=== PATIENT | male | born 1965 | race Caucasian/White ===

== ENCOUNTER 2025-02-06 17:13 | Observation (INO) | payer MEDICAID, SELFPAY ==
[2025-02-06] VITALS (11 sets, daily range): BP systolic 115–148; BP diastolic 86–94; PULSE 105–120; RESP 19–22; TEMP 36.8–36.9; O2SAT 95–100; BMI 19.5
--- NOTE | 2025-02-06 17:31 | EKG_ITS ---
[facility] Test Date: 2025-02-06 Pat Name: GABRIEL AUSTIN Department: Room: - Gender: Male Home Care Consultant: : 1965 Requested By: Mike Lynch Order Number: [id number] Reading MD: Mike Lynch Measurements Intervals [place] Rate: 113 P: 81 NV: 138 QRS: 121 QRSD: 96 T: 61 QT: 330 QTc: 454 Interpretive Statements SINUS TACHYCARDIA RIGHT ATRIAL ENLARGEMENT [0.3mV P-WAVE] POSSIBLE LEFT ATRIAL ENLARGEMENT [-0.1mV P-WAVE IN V1/V2] LEFT POSTERIOR FASCICULAR BLOCK [QRS AXIS > 109, INFERIOR Q] Compared to ECG 01/08/2024 09:33:51 Left posterior fascicular block now present Short NV interval no longer present /store/S0/[id number].pdf
--- NOTE | 2025-02-06 17:31 | XR_ITS ---
Examination: AP chest single view Technique 1 AP portable sitting chest single view Exam date and time: February 06, 2025 1628 hours INDICATIONS: COPD difficulty breathing today. FINDINGS: Normal heart size Moderate hyperexpansion Scarring left base No lobar pneumonia or pulmonary edema Moderate osteopenia IMPRESSION: COPD No pneumonia or pulmonary edema
--- NOTE | 2025-02-06 17:31 | PD.EDSOB ---
ED SOB =RME/HPI General Chief Complaint: Shortness of Breath/Dyspnea Stated Complaint: SHORTNESS OF BREATH Time Seen by Provider: 02/06/25 17:31 Arrival date/time: 02/06/25 17:13 RME / HPI RME / HPI Narrative: DR. GARCIA MAIN ED EVALUATION: 59 year old male with past medical history significant for hypertension and COPD presents to the Emergency Department [facility] with complaint of shortness of breath onset today. Symptoms are moderate. No other symptoms reported at this time. Related Data Home Medications ?Medication ?Instructions ?Recorded ?Confirmed losartan 25 mg tablet 25 mg PO QDAY 01/08/24 01/08/24 multivitamin 1 tab PO QDAY 01/08/24 01/08/24 Previous Rx's ?Medication ?Instructions ?Recorded albuterol sulfate 90 mcg/actuation 1 inh inhalation Q4H #1 ea 12/15/23 breath activated powder inhaler,sensor albuterol sulfate 90 mcg/actuation 1 inh inhalation QID PRN shortness 01/08/24 aerosol inhaler of breath or wheezing #8.5 grams fluticasone propionate 44 1 puff inhalation BID #10.6 grams 01/09/24 mcg/actuation HFA aerosol inhaler prednisone 5 mg tablet See Taper PO QDAY #19 tabs 01/09/24 umeclidinium 62.5 mcg-vilanterol 1 inh inhalation QDAY #60 ea 01/09/24 25 mcg/actuation powdr for inhalation (Anoro Ellipta) Allergies Allergy/AdvReac Type Severity Reaction Status Date / Time No Known Allergies Allergy Unverified 01/08/24 08:38 Review of Systems Review of Systems Systems Reviewed: All systems reviewed, normal except as documented Narrative Review of Systems: Constitutional: DENIES: fevers; Eyes: DENIES: loss of vision; Head/Ear/Nose: DENIES: loss of hearing. Throat: DENIES: dysphagia. Cardiovascular: DENIES: chest pain, dyspnea, or syncope. Respiratory: POSITIVES: shortness of breath Gastrointestinal: DENIES: rectal bleeding or melena. Genitourinary: DENIES: dysuria (painful or difficult urination); Musculoskeletal: DENIES: arthralgia (pain in a joint); Skin: DENIES: rash; Neurological: DENIES: loss of function or movement; Psychiatric: DENIES: recent major life stressor, emotional problem, illicit drug use or abuse; Endocrinology: DENIES: weight change,; Hematologic/Lymphatic: DENIES: abnormal bruising. Allergic/Immunologic: DENIES: urticaria (hives). Past Medical History Past Medical History CARDIAC: Positive Hypertension RESPIRATORY: Positive Chronic Obstructive Pulmonary Disease (COPD) and Asthma; Negative Bronchitis, Emphysema, Pneumonia, Pulmonary Fibrosis, Cystic Fibrosis, Tuberculosis, Pulmonary Embolism, Pulmonary Edema or Sleep Apnea GASTROINTESTINAL: Negative Gastrointestinal Disorders, Hepatitis, Cirrhosis, Pancreatitis, Celiac Disease, Gall Bladder Disease, Gastrointestinal Bleed, Esophageal Varices, Sands's Esophagus, Colitis, Ulcerative Colitis, Diverticulitis, Diverticulosis, Ulcer, Colorectal Cancer, Irritable Bowel, Crohn's Disease, Obstructive Bowel, Hiatal Hernia, Hemorrhoids, Gastroesophageal Reflux Disease or Obesity GENITOURINARY: Negative Genitourinary Disorders, Renal Disease, Kidney Stones, Polycystic Kidney Disease, Neurogenic Bladder, Inguinal Hernia, Dialysis, Prostate Cancer or Benign Prostatic Hyperplasia REPRODUCTIVE: Negative Breast Cancer, Fibroids, Genital Herpes, Gonorrhea, Syphilis or Testicular Cancer MUSCULOSKELETAL: Positive Arthritis; Negative Musculoskeletal Disorders, Muscular Dystrophy, Myasthenia Gravis, Marfan's Syndrome, Bone Cancer, Rheumatoid Arthritis, Osteoporosis, Degenerative Disk Disease, Gout, Scoliosis, Carpal Tunnel Syndrome, Fibromyalgia, Fractures, Degenerative Joint Disease, Osteomyelitis or Poliovirus ENT: Negative Cataracts, Glaucoma, Blind, Retinal Detachment, Macular Degeneration, Ear Infection, Deafness or Eye Prosthesis ENDOCRINE: Negative Endocrine Disorders, Diabetes Mellitus Type 1, Diabetes Mellitus Type 2, Hypoglycemia, Webb's Syndrome, Ballard's Disease, Hyperthyroidism, Hypothyroidism, Parathyroid Disease, Pituitary Disease, Systemic Lupus Erythematosus, Syndrome of Inappropriate Antidiuretic Hormone (SIADH), Adrenal Disease or Graves' Disease HEMATOLOGIC: Negative Blood Disorders, Anemia, Leukemia, Hemophilia, Thalassemia, Sickle Cell Disease or Clotting Problems PSYCHO/SOCIAL: Negative Psychiatric Problems, Schizophrenia, Recreational Drug Use, Bipolar Disorder, Depression, Anxiety, Behavior Problems, Self-Mutilation, Attention Deficit Disorder, Attention Deficit Hyperactivity Disorder, Depression, Post Traumatic Stress Disorder or Eating Disorder OTHER HISTORY: Negative Hospitalization, Autoimmune Disease, Down Syndrome, Autism, Developmental Delay, Shingles, Falls, Blood Transfusions, Blood Transfusion Reaction, Anesthesia Reactions, Organ Transplant, Chemotherapy, Radiation Therapy, Hyperbaric Therapy, MRSA, VRSA, Vancomycin-Resistant Enterococci, Human Immunodeficiency Virus (HIV), Chicken Pox, Measles, Mumps, Rubella (Serbian Measles), Pertussis, Clostridium Difficile, Cancer, Breast Cancer, Cervical Cancer, Colorectal Cancer, Lung Cancer, Ovarian Cancer, Prostate Cancer or Testicular Cancer Family History FAMILY HISTORY: Negative Family Psychiatric Problems, Family Respiratory Disorders, Family Cardiac Disorders, Family Gastrointestinal Problems, Family Cancer, Family Surgery or Family Anesthesia Reaction Surgical History SURGICAL: Negative Cardiac Surgery, Open Heart Surgery, Coronary Artery Bypass Graft, Valve Replacement, Vascular Surgery, Coronary Stent, Cardiac Catheterization, Pacemaker, Angiogram, Auto Implanted Cardiovert Defib, Carotid Endarterectomy, Endocrine Surgery, Thyroidectomy, Ear Surgery, Tympanostomy Tube, Eye Surgery, Nose Surgery, Oral Surgery, Tonsillectomy, Adenoidectomy, Cochlear Implant, Corneal Transplant, Throat Surgery, Abdominal Surgery, Tracheostomy, Gastric Bypass Surgery, Gastrostomy, Bowel Surgery, Nephrectomy, Transurethral Resection, Joint Replacement, Amputation, Open Reduction Internal Fixation, Arthroscopy, Neurologic Surgery, Brain Shunt, Mastectomy, Lumpectomy, Hysterectomy, Tubal Ligation, Section, Vasectomy or Organ Transplant Social History SMOKING STATUS: Former smoker SECOND HAND EXPOSURE: No (states quit 10 years ago) SUBSTANCE USE: does not use ALCOHOL: Never ED Exam Narrative Physical exam: Physical Exam: General: The vital signs were reviewed. Patient arrives in the ambulance bay and put into room 3 as he is labored breathing grossly short of breath speaking have to full sentences barely full sentences. The patient is non-toxic, with a patent airway, and has no apparent circulatory problems. Head & Scalp: Normocephalic, atraumatic. Face: Appears normal and is without lesions, deformity. Ears: Left external pinna appears normal. Right external pinna appears normal. Eyes: The sclera is anicteric. No obvious photophobia. The Left and Right Orbit/Lid/Conjunctiva appears normal without swelling, discoloration or injection. Nose: The nose is without deformity, discharge or tenderness; Throat: Appears normal. The mucous membranes are pink and moist without exudates, redness or mass seen. The tongue appears normal. Neck: The neck is supple and no apparent mass or adenopathy. Chest: The chest wall is normal in size and symmetry and has no chest wall tenderness or crepitus. The patient displays increased ventilatory effort with wheezes in all lung loya and prolonged expiratory phase and poor air movement overall. Cardiovascular: Tacky but regular regular rate and rhythm; No murmurs, rubs, or gallops; Gastrointestinal: The abdomen appears normal. No obvious hernias or mass. The abdomen is soft and benign, non-distended, with no pain, no guarding and no rebound tenderness. Bowel sounds are present and normal sounding. No CVA tenderness. Genitourinary: Back/Spine: Normal inspection Extremities/Musculoskeletal/lymphatic: The bilateral upper and lower extremities are warm. There is no evidence of arterial insufficiency. There is no evidence of venous insufficiency/edema. The patient spontaneously moves bilateral upper and lower extremities with no pain and no limitation of movement. There is no apparent, injury or trauma. Skin: The skin is warm, dry and intact. No rashes. No petechia. No purpura. No abnormal bruising. The color is appropriate with no cyanosis. Mental status/Psychiatric: Mental status is appropriate for age. The patient has no apparent delusions, visual hallucinations, no apparent audible hallucinations. The patient has no apparent suicidal thoughts/ideation and no apparent homicidal thoughts/ideation. Neurological: The patient is awake, alert, interactive, cordial, cooperative and is oriented to name and situation. The patient follows commands and answers historical question with no impairment. There is no visual disturbance apparent. The pupils are equal and reactive bilaterally with normal eye movements and no diplopia The bilateral upper and lower extremities have normal strength, normal range of motion and normal functioning. The gait, station and balance not tested due to acuity. Course Quality Measures none Orders Category Date Time Status Child Adolescent Care STAT Care 02/06/25 17:31 Active Continuous Pulse Oximetry STAT Care 02/06/25 17:31 Completed EKG (ED ONLY) *Do not use* NOW Care 02/06/25 17:31 Completed Insert IV NOW Care 02/06/25 17:31 Active Miscellaneous Nursing Order NOW Care 02/06/25 17:31 Active NPO STAT Care 02/06/25 17:31 Active EKG (ED Only) Stat Exams 02/06/25 17:31 Draft XR chest 1V portable Stat Exams 02/06/25 17:31 Taken B-Type Natriuretic Peptide Stat Lab 02/06/25 17:58 Received Blood Culture (Lab) Stat Lab 02/06/25 17:58 Received CBC Stat Lab 02/06/25 17:58 Received Comprehensive Metabolic Panel Stat Lab 02/06/25 17:58 Received Lactate (Lactic Acid) Stat Lab 02/06/25 17:58 Completed Magnesium Stat Lab 02/06/25 17:58 Received Procalcitonin Stat Lab 02/06/25 17:58 Received Troponin I Stat Lab 02/06/25 17:58 Received Urinalysis Stat Lab 02/06/25 17:31 Ordered Venous Blood Gas Stat Lab 02/06/25 17:58 Completed ALBUTEROL RT 0.5ml [Proventil Rt 0.5ml] Med 02/06/25 17:31 Discontinued 10 mg INH X1 ONE Ipratropium [place] Rt Arianna [Atrovent Rt Arianna] Med 02/06/25 17:31 Discontinued 0.5 mg INH X1 ONE MethylPREDNISolone.* [SoluMEDROL Inj] Med 02/06/25 17:31 Discontinued 125 mg IVP X1 ONE Oxygen Delivery NOW RT 02/06/25 17:31 Active Vital Signs Vital signs: Vital Signs Temperature 98.3 F 02/06/25 17:40 Pulse Rate 117 H 02/06/25 17:40 Respiratory Rate 21 H 02/06/25 17:40 Pulse Oximetry (%) 97 02/06/25 17:40 Oxygen Delivery Method Nasal Cannula 02/06/25 17:40 Oxygen Flow Rate 3 02/06/25 17:40 Procedures -ED Smoking Cessation Time Spent Discussing Smoking Cessation w/Patient (min): 3 Patient Acknowledges Need for Cessation: Yes Additional Comments: The patient was counseled as to the multiple risks to their health from continued use of tobacco products. It was explained that continuing to smoke may lead to multiple short and fci negative health consequences, including but not limited to mouth/esophageal/lung cancer, COPD, and heart disease. The patient states they understand these risks, and also understand the options and resources available to them to help them stop smoking. Nicotine replacement therapy, local hotlines, and local resources were discussed as viable options for helping them stop their tobacco use. The total time spent counseling the patient regarding tobacco cessation was 3 minutes. Shortness of Breath / Dyspnea MDM Narrative MDM Narrative:: Patient arrives at 1730 hrs. with respiratory distress obvious wheezing history of COPD and will start continuous nebs initiated workup. This will be a critical care patient due to the continuous nebs required. At 1800 my partners come on and assumes the care of this patient respiratory distress is getting his continuous nebs now medical workup is just been initiated. The only laboratory study that came back his venous blood gases a pH is 7.41 and a pCO2 of 46. Dr. Morrison is aware and assumes care. Sharri Burgos am scribing for and in the presence of Dr. Garcia. Patient data External records reviewed:: [facility] previous records (Reviewed last admission discharge dated 01/09/24, patient admitted for the following: Acute respiratory distress) and EMS form Clinical information provided by:: patient Social determinants that could affect healthcare access:: other (specify) (smoking) Patient has the following chronic illnesses:: hypertension and COPD How is presenting disease/condition affected by chronic disease/condition?: exacerbated by Evaluation data The following diagnostics were reviewed and interpreted by me:: lab results, radiology exam(s) and EKG tracing(s) Lab and/or radiology exams considered but not ordered:: none Interpretation Summary: pending diagnostic tests Medications / Prescriptions Medications or Prescriptions considered but not ordered:: none Medication administrations:: Medication Administration History Discontinued Medications Albuterol (Albuterol Rt 2.5 Mg/0.5 Ml Nebu) 10 mg INH X1 ONE Stop: 02/06/25 17:32 Last Admin: 02/06/25 17:42 Dose: 10 mg Documented By: NE Ipratropium [place] (Ipratropium Rt 0.5 Mg/ 2.5 Ml Nebu) 0.5 mg INH X1 ONE Stop: 02/06/25 17:32 Last Admin: 02/06/25 17:41 Dose: 0.5 mg Documented By: NE Methylprednisolone Sodium Succinate (Methylprednisolone Sod Succ 62.5 Mg/Ml 2ml Vial) 125 mg IVP X1 ONE Stop: 02/06/25 17:32 Last Admin: 02/06/25 17:40 Dose: 125 mg Documented By: RIC see above Consultations Consultation(s) initiated? (list below): No Diagnosis Shortness of Breath Differential Diagnosis: acute exacerbation of chronic obstructive airways disease, community acquired pneumonia, asthma with exacerbation and pulmonary embolism Most likely diagnosis given after review of the tests above:: No official diagnoses at this time, still pending diagnostic tests. Patient signout to the manufacturing supervisor 2nd shift provider. Admission Indicated Admission indicated?: not indicated Explain why admission is indicated or not indicated:: No final disposition plan at this time, still pending diagnostic tests. Patient signout to the manufacturing supervisor 2nd shift provider. Admission Request Was there a request for admission?: No Disposition Plan Disposition Plan: other (specify) (Patient signout to the manufacturing supervisor 2nd shift provider. ) Discharge Plan Prescriptions/Referrals Prescriptions/Med Rec: No Action albuterol sulfate 90 mcg/actuation aero powdr breath act w/sensor 1 inh inhalation Q4H Qty: 1 1RF multivitamin Tablet 1 tab PO QDAY losartan 25 mg Tablet 25 mg PO QDAY albuterol sulfate 90 mcg/actuation HFA aerosol inhaler 1 inh inhalation QID PRN (Reason: shortness of breath or wheezing) Qty: 8.5 2RF prednisone 5 mg tablet See Taper PO QDAY Qty: 19 0RF Taper: Prednisone Taper 20 mg DAILY for 2 Days and 0 Hour 10 mg DAILY for 2 Days and 0 Hour 5 mg DAILY for 7 Days and 0 Hour Anoro Ellipta 62.5-25 mcg/actuation blister with device 1 inh inhalation QDAY Qty: 60 0RF fluticasone propionate 44 mcg/actuation HFA aerosol inhaler 1 puff inhalation BID Qty: 10.6 0RF Rx Instructions: administer with spacer Problem List Clinical Impression: COPD exacerbation, Acute respiratory distress Patient/Caregiver Discharge Instructions Print Language: Micronesian
[2025-02-06] MEDS: MethylPREDNISolone SOD SUCC 62.5 MG/ML 2ML VIAL 125 MG IVP (17:40)
[2025-02-06] MEDS: IPRATROPIUM RT 0.5 MG/ 2.5 ML NEBU INH ×2 (17:41→22:34)
[2025-02-06] MEDS: ALBUTEROL RT 2.5 MG/0.5 ML NEBU 10 MG INH (17:42)
[2025-02-06 18:05] LABS: Lactate (Lactic Acid) 1.3 mMol/L (0.4-2.0)
[2025-02-06 18:06] LABS: Base Excess, Venous 4 (-3-3); O2 Saturation, Venous 73 % (96-97); PCO2, Venous 46 mmHg (36-56); PO2, Venous 38 mmHg (15-58); pH, Venous 7.41 (7.33-7.66)
[2025-02-06 18:10] LABS: Basophils # (Auto) 0.1 Thou/mm3 (0.0-0.2); Basophils % (Auto) 1 % (0-2.5); Eosinophils # (Auto) 0.2 Thou/mm3 (0.0-0.5); Eosinophils % (Auto) 3 % (0-10); Hematocrit 45.2 % (41.0-53.0); Hemoglobin 15.9 g/dL (13.5-16.0); Immature Granulocytes % (Auto) 0 % (0-0); Immature Granulocytes Auto 0.02 Thou/mm3 (0.00-0.00); Lymphocytes # (Auto) 2.5 Thou/mm3 (1.0-4.8); Lymphocytes % (Auto) 34 % (10-50); Mean Corpuscular HGB Conc 35.2 g/dl (31.0-37.0); Mean Corpuscular Hemoglobin 31.8 pg (25.0-35.0); Mean Corpuscular Volume 90 fL (80-100); Monocytes # (Auto) 0.7 Thou/mm3 (0.0-0.8); Monocytes % (Auto) 10 % (0-12); Neutrophils # (Auto) 3.8 Thou/mm3 (1.8-7.7); Neutrophils % (Auto) 52 % (37-80); Nucleated Red Blood Cell % 0 /100 WBC (0); Platelet Count 267 Thou/mm3 (140-440); White Blood Count 7.3 Thou/mm3 (3.8-10.6)
[2025-02-06] MEDS: LORazepam 2 MG/ML VIAL 1 MG IVP (18:19)
[2025-02-06] MEDS: Magnesium Sulfate 2 GM Ivpb 2 GM/50 ML BAG IV (18:20)
[2025-02-06 18:33] LABS: B-Type Natriuretic Peptide < 20 pg/mL (0-100)
[2025-02-06 18:36] LABS: D-Dimer < 250 ng/mL (<600)
[2025-02-06 18:41] LABS: Alanine Aminotransferase 39 U/L (10-49); Albumin, Serum 4.5 gm/dL (3.4-4.8); Albumin/Globulin Ratio 1.9 (1.2-2.2); Alkaline Phosphatase 84 U/L (46-116); Anion Gap 6 (7-16); Aspartate Amino Transferase 28 U/L (0-34); BUN/Creatinine Ratio 15 Ratio (12-20); Bilirubin,Total 0.8 mg/dL (0.3-1.2); Blood Urea Nitrogen 12 mg/dL (9-23); Calcium 9.9 mg/dL (8.3-10.6); Calcium (Corrected) 9.9 mg/dL (8.5-10.1); Carbon Dioxide 29.6 mMol/L (20.0-31.0); Chloride 104 mMol/L (98-107); Creatinine (Component) 0.8 mg/dL (0.6-1.3); Estimated Creatinine Clearance 88.2 mL/min (>60); Globulin 2.4 gm/dL (2.3-3.5); Glucose 132 mg/dL (74-106); Magnesium 1.8 mg/dL (1.6-2.6); Osmolality,Calculated 281 (275-295); Potassium 4.5 mMol/L (3.4-5.1); Sodium 140 mMol/L (136-145); Thyroid Stimulating Hormone 1.79 uIU/mL (0.55-4.78); Total Protein 6.9 gm/dL (5.7-8.2); Troponin I < 0.020 ng/mL (0.0-0.045); eGFR > 60 See Note
--- NOTE | 2025-02-06 19:45 | PD.EDADDENDU ---
Emergency Room Addendum Addendum Narrative: I took over the care from Dr. Lynch at 6 PM on 02/06/2025, see his notes for complete H&P and ED course. He presented with several days of worsening cough, productive cough, purulent sputum, and dyspnea. Exam remarkable for hypoxia and severely decreased air movement with diffuse wheezing. I reviewed all diagnostic test results. My interpretation of the EKG is: Sinus rhythm (113 bpm) with nonspecific ST-T changes. My interpretation of the chest x-ray is no acute findings. Blood tests unremarkable, including negative troponin/D-dimer/BNP. COVID/influenza negative. At this point, diagnoses include acute respiratory failure with hypoxia and an COPD exacerbation. Treatment here included Solu-Medrol 125 mg IV, neb treatments, MgSO4 2 gram IV, Rocephin 1 g IV, and oral Zithromax 500 mg. And Ativan 1 mg IV to help with the side effects. Some improvement noted. I discussed the case with our hospitalist. About the presentation and exam and diagnostics and treatments here. And need of further care in the hospital. Will accept the patient. Jean Morrison MD
[2025-02-06] MEDS: AZITHROMYCIN 250 MG TABLET 500 MG PO (20:15)
[2025-02-06] MEDS: cefTRIAXone 1,000 MG in SODIUM CHLORIDE 0.9% (Popper) 50 ML 100 MG IV (20:16)
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
[2025-02-06] MEDS: ATORVASTATIN CALCIUM 10 MG TABLET 20 MG PO (22:06)
[2025-02-06] MEDS: SODIUM CHLORIDE RT 10% 15 ML NEBU 5 ML INH (22:25)
[2025-02-06] MEDS: LEVALBUTEROL RT 0.63 MG/3 ML NEBU 1.25 MG INH (22:35)
[2025-02-07] VITALS: BP 115/85; PULSE 105; RESP 17; TEMP 36.4; O2SAT 98
[2025-02-07 02:20] LABS: Collection Type, Urine Clean Catch
[2025-02-07 03:11] LABS: Bilirubin,Urine Negative (Negative); Blood,Urine Negative (Negative); Clarity,Urine Clear (Clear/Hazy); Color,Urine Lt-Yellow (Lt Yel-Yel); Glucose, Urine 3+ (Negative); Ketones,Urine 1+ (Negative); Leukocyte Esterase,Urine Negative (Negative); Nitrite,Urine Negative (Negative); PH,Urine 6.5 (5.0-7.0); Protein,Urine Negative (Neg - Trace); RBC,Urine 1 /hpf (0-3); Specific Gravity,Urine 1.022 (1.001-1.035); Squamous Epithelial Cell,Urine < 1 /hpf (0-5); Urobilinogen,Urine Negative mg/dL (0.0-1.0); WBC,Urine 1 /hpf (0-5)
[2025-02-07 04:00] VITALS: BP 133/84; PULSE 100; PULSE 92; RESP 26; TEMP 36.5; O2SAT 93
[2025-02-07 06:03] LABS: Basophils % (Auto) 0 % (0-2.5); Eosinophils % (Auto) 0 % (0-10); Hematocrit 42.3 % (41.0-53.0); Hemoglobin 14.9 g/dL (13.5-16.0); Immature Granulocytes % (Auto) 0 % (0-0); Immature Granulocytes Auto 0.01 Thou/mm3 (0.00-0.00); Lymphocytes # (Auto) 0.6 Thou/mm3 (1.0-4.8); Lymphocytes % (Auto) 13 % (10-50); Mean Corpuscular HGB Conc 35.2 g/dl (31.0-37.0); Mean Corpuscular Volume 91 fL (80-100); Monocytes # (Auto) 0.2 Thou/mm3 (0.0-0.8); Monocytes % (Auto) 5 % (0-12); Neutrophils % (Auto) 82 % (37-80); Nucleated Red Blood Cell % 0 /100 WBC (0); Platelet Count 267 Thou/mm3 (140-440); RDW Standard Deviation 39.4 fL (35.1-43.9); Red Blood Count 4.66 Miln/mm3 (4.50-5.90); White Blood Count 4.8 Thou/mm3 (3.8-10.6)
[2025-02-07 06:09] LABS: Glucose Estimated Average 108 mg/dL (80-131); Hemoglobin A1C 5.4 % Hgb (4.8-6.0)
[2025-02-07 06:12] LABS: Partial Thromboplastin Time 24.7 Seconds (22.0-36.0); Prothrombin Time 11.3 Seconds (9.0-12.2)
[2025-02-07] MEDS: LEVALBUTEROL RT 0.63 MG/3 ML NEBU 1.25 MG INH (06:17)
[2025-02-07] MEDS: IPRATROPIUM RT 0.5 MG/ 2.5 ML NEBU INH (06:17)
[2025-02-07 06:18] VITALS: PULSE 102; PULSE 95; RESP 18; RESP 20; O2SAT 97; O2SAT 99
[2025-02-07 06:24] LABS: Alanine Aminotransferase 31 U/L (10-49); Albumin/Globulin Ratio 1.8 (1.2-2.2); Alkaline Phosphatase 78 U/L (46-116); Anion Gap 9 (7-16); Aspartate Amino Transferase 22 U/L (0-34); BUN/Creatinine Ratio 18 Ratio (12-20); Bilirubin,Total 0.5 mg/dL (0.3-1.2); Blood Urea Nitrogen 14 mg/dL (9-23); Calcium 9.2 mg/dL (8.3-10.6); Calcium (Corrected) 9.2 mg/dL (8.5-10.1); Carbon Dioxide 27.8 mMol/L (20.0-31.0); Cardiac Risk Estimate 2.1 RATIO (4.0-6.7); Chloride 103 mMol/L (98-107); Cholesterol 149 mg/dL (132-200); Creatinine (Component) 0.8 mg/dL (0.6-1.3); Estimated Creatinine Clearance 88.4 mL/min (>60); Globulin 2.2 gm/dL (2.3-3.5); Glucose 163 mg/dL (74-106); HDL Cholesterol 70 mg/dL (40-60); LDL Cholesterol,Calculated 72 mg/dL (0-130); Magnesium 1.9 mg/dL (1.6-2.6); Osmolality,Calculated 283 (275-295); Potassium 4.2 mMol/L (3.4-5.1); Sodium 140 mMol/L (136-145); Total Protein 6.2 gm/dL (5.7-8.2); Triglycerides 37 mg/dL (30-150); eGFR > 60 See Note
[2025-02-07 08:00] VITALS: BP 115/78; PULSE 97; RESP 15; TEMP 36.6; O2SAT 100
[2025-02-07 08:02] VITALS: BP 115/79; PULSE 97
[2025-02-07] MEDS: LOSARTAN POTASSIUM 25 MG TABLET 50 MG PO (08:02)
--- NOTE | 2025-02-07 11:01 | PC.SS ---
Patient Cheng Aguayo is a 59 Year old male admitted for Short of Breath. SS met with patient at bedside to discuss discharge plan and review Demographic information. Patient reports he lives at home with roommates. Patient reports his surrogate decision maker is his life partner, Lara Courtney [phone]. or [phone]. Patient reports he does not utilize any DME to assist with ambulation, howerver does utilize home 02 as needed 1L and is established with [employer]. Patient's PCP is Dk Oneal. At time of discharge patient wishes to return back home. family will provide transportation. Next of kin: Life partner Lara Courtney Discharge plan HOme
--- NOTE | 2025-02-07 11:39 | ESDS_ITS ---
Planned Discharge Date 02/07/25 DS: Providers Provider Date of admission: 02/06/25 21:32 Primary care physician: Dk Oneal MD Admitting Provider: Saray Carlos MD Attending Provider on Admission: Jose Lyle DO Attending Provider on DC: Toby Davies MD Discharging Provider: Toby Davies MD DS: Diagnosis Problem List Completed Was Problem List Reviewed/Reconciled?: Yes Hospital Course Hospital Course Hospital course: Mr. Aguayo is a 58-year-old male with past medical history of COPD, hypertension who presented to [facility] ED on complaining of shortness of breath and cough for 1 day. Patient has admitted to observation overnight for further management of COPD exacerbation. Pt is not a current smokers and last cigarette was 18 years ago. Patient received breathing treatments and supplemental oxygen. VBG were within normal limits, and the remainder of the labs including troponin, BNP, Pro-Choco was all within normal limits chest x-ray showed no pneumonia or pulmonary edema. Patient is back to baseline currently saturating 99% on 1 L oxygen which is what he uses at home. Patient has a appointment with district manager primary care sales and painting technician later this year. Patient is hemodynamically and clinically stable to be discharged home to self- care. Patient is strongly advised to continue using his home Trelegy daily and albuterol as needed as well as supplemental oxygen daily. If symptoms recur or worsen to promptly return to the ED. Discharge Recommendations -Follow up with primary care within 2 weeks -Take medications as prescribed -Follow up with district manager primary care sales and painting technician at your scheduled appointment -If your symptoms reoccur or worsen, promptly return to the ED Hospitalization Diagnosis #Acute on chronic hypoxic respiratory failure #COPD exacerbation- resolved #Hypertension #Hyperlipidemia #Sinus tachycardia Assessment and plan discussed with my attending physician Dr. Valdo Davies (PGY-1)- Internal medicine resident Status at Discharge Functional status at discharge: independent ambulation Time Spent with Patient Time attestation: Total time spent providing and/or coordinating discharge services: Time spent: Greater than 30 minutes Exam Vital Signs Temp Pulse Resp BP Pulse Ox O2 Del Method O2 Flow Rate 97.8 F 97 15 115/79 100 Nasal Cannula 2 02/07/25 08:00 02/07/25 08:02 02/07/25 08:00 02/07/25 08:02 02/07/25 08:00 02/07/25 08:00 02/07/25 08:00 Narrative Exam GENERAL: A&Ox3 . Awake, Not in acute distress NEURO: no focal neurological deficits HEENT: Atraumatic, Normocephalic. mucous membranes moist. Eyes open, symmetrical, & clear HEART: Normal Heart Sounds LUNGS: Clear to auscultation with no wheezing or crackles. ABDOMEN: soft, non-distended, non-tender, bowel sounds heard, no guarding or rebound tenderness SKIN: No Rash or ecchymoses EXTREMITIES: No edema, tenderness, able to move all 4 extremities, pedal pulses palpated Discharge Plan Plan Patient Disposition: HOME (Self Care) Care Plan Goals: -Follow up with primary care within 2 weeks -Take medications as prescribed -Follow up with district manager primary care sales and painting technician at your scheduled appointment -If your symptoms reoccur or worsen, promptly return to the ED Prescriptions/Referrals Prescriptions/Med Rec: Continued losartan 50 mg tablet 50 mg PO QDAY Patient Comments: TAKE 1 TABLET BY MOUTH EVERY DAY atorvastatin 20 mg tablet 20 mg PO QDAY Patient Comments: TAKE 1 TABLET BY MOUTH EVERY DAY FOR 90 DAYS albuterol sulfate 90 mcg/actuation HFA aerosol inhaler 1 inh inhalation QID PRN (Reason: shortness of breath or wheezing) Qty: 8.5 2RF Anoro Ellipta 62.5-25 mcg/actuation blister with device 1 inh inhalation QDAY Qty: 60 0RF Referrals: Dk Oneal MD [Primary Care Provider] - Patient/Caregiver Discharge Instructions Education Materials: COPD: Wheezing and Chest Tightness, Discharge Instructions: COPD, COPD: Lung Surgery Options, Chronic Lung Disease Avoiding ... Print Language: Maori Stand Alone Forms: Joy Award Info., Patient Portal Info Letter, Work/Release Restrictions Discharge Order Discharge Orders: Discharge (Routine); Ordered 02/07/25 Ordered By: Toby Davies Quality Discharge Quality Measures none MD Attestestation MD Attestation I have discussed and was present for the essential components of the discharge history, physical examination, diagnosis, and discharge treatment plan with the resident. I agree with the patient's discharge care as documented by the resident and amended herein by me. Luis Alberto Lyle DO. The patient understood all discharge instructions, all questions were answered satisfactorily. The patient was instructed to return to the Emergency Department is symptoms worsened or persisted. Patient is stable, afebrile, tolerating p.o. intake and ambulatory at time of discharge. SpO2 in high 90s, patient will need to follow-up with cardiology and pulmonology, he states he already has appointments. He does not need any antibiotics or steroids at this time. All questions answered satisfactorily. Although this document has been carefully reviewed, there may still be some phonetic and other typographical errors. These errors are purely grammatical due to imperfections in the software program and should not be construed in any way to compromise the substance of the patient's medical care during this visit.
--- NOTE | 2025-02-07 11:59 | PC.NURSE ---
RA oxygen test done at bedside pt sating well at 96%at rest 94% up and light ambulation. Per pt uses prn oxygen at home and has all supplies as well as oxygen. Per pt usually on RA.
[2025-02-07 12:00] VITALS: BP 119/76; PULSE 89; PULSE 98; RESP 22; TEMP 36.2; O2SAT 98
--- NOTE | 2025-02-07 12:03 | PC.NURSE ---
Notified dr Davies of pts refusal for Mag this morning per md cont with discharge.
== END 2025-02-07 12:06 | disposition home or self-care (01) ==
LOC: SERX 20:06 → SERHOLD 22:36 → S3NX 02-07 08:32
PROVIDERS: Emergency Medicine; Admitting Provider Internal Medicine; Emergency Provider Emergency Medicine; PCP Family Medicine; Visit Provider Student in an Organized Health Care Education/Training Program
DX: J96.21 Acute and chronic respiratory failure with hypoxia (principal); J44.1 Chronic obstructive pulmonary disease with (acute) exacerbation; K50.90 Crohn's disease, unspecified, without complications; E78.5 Hyperlipidemia, unspecified; I10 Essential (primary) hypertension; Z01.810 Encounter for preprocedural cardiovascular examination
CPT/HCPCS: 36415; 71045; 80053; 80061; 81001; 82803; 83036; 83605; 83735; 83880; 84100; 84145; 84443; 84484; 85025; 85379; 85610; 85730; 87040; 87077; 87186; 87205; 87400; 87811; 89220; 93005; 94640; 94644; 96365; 96366; 99285; G0378; J0696; J2060; J2919; J3475; J7050; A9270